=== PATIENT | male | born 1940 | race Caucasian/White ===

== ENCOUNTER → 2017-12-31 09:58 | Outpatient (CLI) | payer MEDICARE, BC, SELFPAY ==
--- NOTE | 2017-12-31 | DI.MRI.S_ITS ---
PROCEDURE: MR KNEE LT WO CON INDICATIONS: LEFT KNEE PAIN TECHNIQUE: Noncontrast sagittal PD fast spin echo and T2 fast spin echo with fat saturation, sagittal 3-D FLASH with fat saturation; coronal T1 spin echo and PD fast spin echo with fat saturation, and axial PD fast spin echo with fat saturation through the knee. COMPARISON: None. FINDINGS: Image quality: Excellent. Menisci: The medial and lateral menisci demonstrate degenerated morphology and internal signal which is most pronounced at the medial meniscus posterior horn where portions of the meniscus are absent and the remaining visible meniscal substance is heterogeneous and fluid ridge, indicating presence of both prior meniscal tear and degenerative erosions of the meniscal substance. The meniscal root ligaments appear intact. Cruciate ligaments: The anterior and posterior cruciate ligaments appear intact. Medial structures: The medial collateral ligament appears intact. The posterior oblique ligament, semimembranosus tendon insertions, oblique popliteal ligament, and meniscocapsular junction appear intact. Visualized portions of the pes anserinus tendons appear normal. No abnormal bursal fluid. Lateral structures: The lateral collateral ligament, long and short heads of the biceps femoris tendon appear intact. The popliteus tendon appears normal; the popliteofibular ligament appears intact. The posterosuperior and anteroinferior popliteomeniscal fascicles appear intact. The arcuate and fabellofibular ligaments appear intact, on either side of the lateral inferior geniculate artery. Iliotibial band appears normal. Anterior structures: The quadriceps and patellar tendons appear intact. Patellar alignment is normal. No femoral trochlear dysplasia or ventral trochlear prominence. No edema in the infrapatellar fat pad. Bones and cartilage: No bone marrow contusions or fractures but there is expected degenerative reactive edema within the medullary space of the medial femoral condyle and medial tibial plateau adjacent to the areas of maximal degenerative osteoarthritic change where a near [id number] articulation is present. The degree of degenerative osteoarthritic thinning of the cartilages less pronounced but still moderately severe at the lateral compartment. There is mild to moderate at the patellofemoral joint is seen at the apex of the throat clear groove and the lateral facet.. The cartilage of the medial and lateral femorotibial compartments, as well as the patellofemoral compartment, appears normal in thickness. Joint space: There is a moderately large degree of excess knee joint fluid. No Vogel's cyst. Normal appearing synovial plicae are incidentally noted. IMPRESSION: Severe osteoarthritis is present, most pronounced at the medial compartment where near [id number] articulation can be seen. This results in reactive edema involving the marrow space of both the medial femoral condyle and medial tibial plateau. Reactive edema also can be seen tracking into the medial collateral ligament and adjacent soft tissues and the medial patellar retinaculum. Meniscal degeneration is quite severe involving the posterior horn of the medial meniscus, and this extends into the mid body. Moderate degeneration involves the anterior horn of the medial meniscus and the posterior horn of the lateral meniscus. Moderately large knee joint effusion, no definite intra-articular loose body is found. Dictated by: Octaviano Rosen M.D. on 12/31/2017 at 16:25 Approved by: Octaviano Rosen M.D. on 12/31/2017 at 16:29
== END ==
PROVIDERS: Visit Provider Orthopaedic Surgery
DX: M25.562 Pain in left knee (principal); M17.12 Unilateral primary osteoarthritis, left knee; M23.307 Other meniscus derangements, unspecified meniscus, left knee; M25.462 Effusion, left knee
CPT/HCPCS: 73721

== ENCOUNTER 2018-04-01 10:31 | Inpatient (IN) | payer MEDICARE, BC, SELFPAY ==
[2018-03-16 10:42] VITALS: BMI 25.1
[2018-04-01] VITALS (11 sets, daily range): BP systolic 95–139; BP diastolic 52–87; PULSE 57–77; RESP 13–20; TEMP 36.1–36.8; O2SAT 93–98; BMI 24.6
--- NOTE | 2018-04-01 06:00 | DI.RAD.S_ITS ---
PROCEDURE: XR KNEE LT 1TO2V INDICATIONS: post op films TECHNIQUE: 2 view(s) of the knee acquired. COMPARISON: None. FINDINGS: Bones: Patient is status post knee joint arthroplasty. Hardware components are in expected positions. Visualized bony structures are intact. Soft tissues: Overlying postoperative changes are noted. IMPRESSION: Expected appearance of left knee arthroplasty. Dictated by: Fredis Fernandez M.D. on 04/01/2018 at 16:36 Approved by: Fredis Fernandez M.D. on 04/01/2018 at 16:36
[2018-04-01] MEDS: LACTATED RINGERS 1,000 ML 42 ML IV (11:21)
[2018-04-01] MEDS: PREGABALIN 75 MG CAPSULE PO (11:22)
[2018-04-01] MEDS: CELECOXIB 200 MG CAPSULE PO (11:22)
[2018-04-01] MEDS: ACETAMINOPHEN 325 MG TABLET 975 MG PO ×2 (11:23→21:12)
[2018-04-01] MEDS: VANCOMYCIN 1,000 MG/200 ML FROZ.PIGGY 200 MG IV (11:52)
--- NOTE | 2018-04-01 12:29 | PM.PREOP ---
Pre-operative Note Interval Note Pre-op Check: Yes History & Physical Reviewed by Physician and Yes Exam Performed Changes: No
--- NOTE | 2018-04-01 12:32 | P.OP_ITS ---
Operative Date/Time/Diagnoses Date of procedure: 04/01/18 Time of procedure: 12:59 Pre-op diagnosis: left knee OA Post-op diagnosis: same Procedure & Clinicians Procedure: left total knee arthroplasty Same procedure as scheduled: Yes Indications: The patient has had progressively worsening left knee pain with radiographic changes consistent with arthritis. Non-operative management has failed and the patient has requested total knee replacement. The risks, benefits and alternatives to surgery were discussed with the patient prior to proceeding. Risks discussed included, but were not limited to, failure to relieve pain, stiffness, infection, nerve damage, deep venous thrombosis, pulmonary embolism, stroke, coma, heart attack, permanent paralysis and , as well as the potential need for eventual revision of the prosthetic. Surgeon: Hafsa Cabello Community Outreach Director: Elyssa Fulton Anesthesia Type: General and Spinal Operative Notes Findings: severe left knee osteoarthritis Closure Type: primary Specimen(s): none sent Implants & Drains: aneesh BCS2 7 femur, 6 tibia, +11 poly, 41 oval patella Applied: catheter Estimated Blood Loss (mL): 250 Blood products transfused: none Tourniquet time (min): 91 Procedure in detail: The patient was seen in the pre-operative area, where the patient identified the left knee as the operative site and this was marked with my initials. The patient received pre-operative antibiotics, and was taken to the operating room and placed on the operative table in the supine position. After satisfactory anesthesia, a multimedia artist out was performed. The left leg was encircled with a tourniquet about the proximal thigh, and the leg was prepared from the toes to the tourniquet with ChloroPrep in the usual fashion and draped through sterile drapes. The leg was elevated and exsanguinated with Eschmark bandage and the tourniquet inflated to [250] mmHg pressure. The knee was approached through an approximately 18 cm incision centered over the patella and carried into the knee through a medial parapatellar arthrotomy. Portion of the medial and lateral meniscus was resected. Soft tissue was carefully mobilized around the patella the patella was measured with a caliper. Bone was resected from the patella and the patellar height was reconstituted with up an appropriate sized patellar component. A cover was then placed on the patella. A small amount of additional medial and lateral meniscus were resected. The visionare guide fit well to the distal femur. It looked like an appropriate distal femoral cut and the cut was made without difficulty. The rotation was assessed and the appropriate size femoral guide was placed on the distal femur and finishing cuts were made. There was no evidence of notching. The anterior, posterior and chamfer cuts were then made. The posterior osteophytes and soft tissues were then removed. The posterior capsule was injected with part of a mixture of 60 ml 0.25% Marcaine mixed with 20 ml Exparel for post operative pain control. The remainder of this mixture was injected into the capsule and subcutaneous tissues during cement curing. The tibia was prepared and the visionaire guide fit well to the distal tibia. The rotation was assessed. The patient was placed in extension residual medial and lateral meniscus as well as any residual bone was carefully resected. 2mm additional tibia was resected. Hemostasis was achieved especially posteriorly. Additional local was injected into the posterior capsule. The extension gap was assessed and additional releases for gap balancing were performed as necessary. It was checked with the gap community health outreach worker. The femoral component was trial was placed and the notch was finished. Trial tibial and femoral components were then placed and the knee placed through a range of motion. Range of motion was [ 0-130], with good stability throughout the range. The trials were then removed, and the tibia was finished. The bone was prepared with pulsatile lavage, and dried with a sponge. Cement was applied and the final prosthetics placed. Excess cement was removed during and after cement curing. A brief Betadine soak was performed. After confirming there was no extruded cement posteriorly, the final tibial insert was placed. The knee was copiously irrigated and the tourniquet deflated. Hemostasis was obtained with the bovie cautery. A drain was placed and brought out superolaterally. The capsule was closed with interrupted poly braided suture. The subcutaneous layer was closed with barbed sutures, and the skin with a running 3-0 V-Lock suture and Surgical glue. An Aquacel Ag dressing was applied and the patient was taken to recovery having tolerated the procedure well. Complications: none Condition: stable Disposition: PACU Plan for aftercare: The patient will be maintained on a standard total knee replacement protocol with weight bearing as tolerated. The patient will receive Aspirin and sequential compression devices for DVT prophylaxis. The patient will be discharged home when safe for the home environment. The patient has several medical problems including diabetes and hypertension and may require an inpatient stay to stabilize his head past medical problems we will try to actively mobilize him with physical therapy.
[2018-04-01] MEDS: CEFAZOLIN 2 GM/100 ML FROZ.PIGGY IV ×2 (13:00→21:11)
--- NOTE | 2018-04-01 13:59 | SUR.OPER ---
Supine on padded OR bed. Pillow under head, arms secured on padded armboards <90 degree abduction. Safety belt across torso. Non-operative leg secured with tape over blanket over lower leg. Operative leg secured in DeMayo/Gaston positioner. Foam padded brace at thigh of operative leg.
[2018-04-01] MEDS: BUPIVACAINE 0.25% W/ EPI VIAL 50 ML INJ (14:14)
[2018-04-01] MEDS: POVIDONE-IODINE 15 ML, SODIUM CHLORIDE 0.9% 250 ML TOP (14:15)
[2018-04-01] MEDS: BUPIVACAINE LIPOSOME 266 MG/20 ML VIAL INJ (14:15)
[2018-04-01] MEDS: ONDANSETRON 4 MG/2 ML INJ IV (16:11)
[2018-04-01] MEDS: OXYCODONE IR 5 MG TABLET PO ×2 (18:15→21:11)
[2018-04-01] MEDS: LACTATED RINGERS 1,000 ML 125 ML IV (18:16)
--- NOTE | 2018-04-01 18:24 | PC.NURSE ---
To room 207 from PACU awake and alert and conversive with family members. States beginning to feel discomfort to left knee; deep and dull. Instructed pt and family on prn nature of pain meds and need to communicate pain level and sensation with staff. Oxycodone administered with evening meal. Pt denies any nausea. BL calf scd's in place. Continuous pulse oximetry 99%.
--- NOTE | 2018-04-01 18:31 | PC.NURSE ---
Hemovac unclamped as per orders.
[2018-04-01] MEDS: IBUPROFEN 600 MG TABLET PO (19:25)
[2018-04-01] MEDS: ASPIRIN EC 81 MG TABLET PO (21:13)
[2018-04-01] MEDS: DOCUSATE 100 MG CAPSULE PO (21:13)
[2018-04-01] MEDS: MELATONIN 3 MG TABLET 6 MG PO (21:14)
[2018-04-01] MEDS: SIMVASTATIN 20 MG TABLET PO (21:14)
--- NOTE | 2018-04-01 22:39 | PC.NURSE ---
Incontinent of urine in bed. Assisted by FIELD TECHNICAL ASSISTANT to bathroom to toilet and for linen change. Returned to bed. Refuses scd's stating makes it difficult to sleep. Medicated with oxycodone for pain 10/06 left knee. Hemovac drain intact. Encouraged to call for needs.
[2018-04-02] MEDS: OXYCODONE IR 5 MG TABLET PO (00:40)
[2018-04-02 00:45] VITALS: BP 105/55; PULSE 64; RESP 18; TEMP 36.5; O2SAT 95
[2018-04-02] MEDS: LACTATED RINGERS 1,000 ML 125 ML IV (02:32)
[2018-04-02 05:09] LABS: Hematocrit 36.3 % (41-53); Hemoglobin 12.4 g/dL (13.5-17.5)
[2018-04-02 05:16] VITALS: BP 114/63; PULSE 62; RESP 18; TEMP 36.7; O2SAT 92
[2018-04-02] MEDS: CEFAZOLIN 2 GM/100 ML FROZ.PIGGY IV (05:39)
[2018-04-02 08:10] VITALS: BP 114/64; PULSE 74; RESP 18; TEMP 36.8; O2SAT 95
[2018-04-02] MEDS: IBUPROFEN 600 MG TABLET PO (09:04)
[2018-04-02] MEDS: ACETAMINOPHEN 325 MG TABLET 975 MG PO (09:06)
[2018-04-02] MEDS: LISINOPRIL 5 MG TABLET PO (09:06)
[2018-04-02] MEDS: MELOXICAM 7.5 MG TABLET 15 MG PO (09:06)
[2018-04-02] MEDS: GABAPENTIN 300 MG CAPSULE PO (09:07)
[2018-04-02] MEDS: ASPIRIN EC 81 MG TABLET PO (09:07)
--- NOTE | 2018-04-02 10:11 | PM.OP.1 ---
Operative Date/Time/Diagnoses Date of procedure: 04/01/18 Time of procedure: 13:28 Pre-op diagnosis: left knee oa
--- NOTE | 2018-04-02 10:20 | PT.IIE ---
Current Diagnoses Unilateral primary osteoarthritis, left knee (04/01/18) Effusion, left knee (04/01/18) Surgery Performed Operation Date: 04/01/18 12:00 Actual Procedures p Total Knee Arthroplasty(Left) - Hafsa Cabello MD Surgical History (Last Updated 03/16/18 @ 11:11 by Rosangela Acevedo, RN) History of bunionectomy (Acute ~1993) History of cholecystectomy (Acute ~1976) History of inguinal hernia repair, bilateral (Acute) History of lumbar laminectomy (Acute ~2012) Medical History (Last Updated 03/16/18 @ 11:36 by Rosangela Acevedo, RN) Bruises easily (Acute) Cataract (lens) fragments in eye following cataract surgery, bilateral (Acute) Constipation (Acute) Depression (Acute) Diabetes (Acute) Effusion, left knee (Acute) Glaucoma (Acute) History of headache (Acute) Hyperlipidemia (Acute) Hypertension (Acute) Murmur (Acute) Osteoarthritis (Acute) Paralysis of diaphragm (Acute) Physical Therapy Inpatient Evaluation/Re-Eval M1 PT/OT-IP Prior Functional Status Start: 04/02/18 12:36 Freq: NEEDED Status: Active Protocol: Document 04/02/18 10:20 DLM (Rec: 04/02/18 12:56 [facility] [id number]) Medical Review Prior Functional Status Medical History Reviewed Yes Diet/Fluid Consistency Regular Communication WNL Mobility and Gait Independent without device, community distances Activities of Daily Living and IADL's Independent Social History Household Members none Living Arrangements House Number of Floors (Floors) Two Floors Number of Stairs To Enter/Railing? 2 with one rail Home Equipment Front Wheel Walker Straight Cane Crutches Employment Status Retired Additional Social History Comment He can stay in guest bedroom on main level, his Daughter plans to stay with him to help at discharge M2 PT-IP Current Condition Start: 04/02/18 12:36 Freq: NEEDED Status: Active Protocol: Document 04/02/18 10:20 DLM (Rec: 04/02/18 12:56 DL [id number]) Physical Therapy Current Condition Current Condition Evaluation Date 04/02/18 Treatment Diagnosis left TKA Onset Date 04/01/18 Weight Bearing Status Weight Bearing Status Weight Bear as Tolerated M3 PT-IP Subjective Start: 04/02/18 12:36 Freq: NEEDED Status: Active Protocol: Document 04/02/18 10:20 DLM (Rec: 04/02/18 12:56 [facility] [id number]) Subjective Physical Therapy Visit Type Type Initial Evaluation Visit Start Time 09:45 Visit Stop Time 10:20 Total Visit Minutes 35 Number of TALENT CONSULTANT Visits 0 Physical Therapy Visit Comments Patient Comments He went to therapy before surgery so he knows his exercises Patient Goals discharge home Therapy Pain Assessment Pain When Pain Assessed At Rest Pain Present Pain Present Pain Reported Location Left Knee Intensity 4 Scale Used Numeric (1 - 10) Description Aching Pain Behaviors Guarding Pain Management Techniques Apply Cold Re-positioning Timing of Activity with Medications M4 PT-IP Mobility and Gait Start: 04/02/18 12:36 Freq: NEEDED Status: Active Protocol: Document 04/02/18 10:20 DLM (Rec: 04/02/18 12:56 [facility] [id number]) PT-Transfer Assessment Sit to and From Stand Sit to and from Stand Standby Assistance Use of Upper Extremities Equipment Transfer Assistive Device Gait Belt Front Wheeled Walker Transfers Transfer Destination Chair Transfer Technique Stand Step Pivot Transfer Ability Level of Assist Standby Assistance Use of Upper Extremities Comments Mobility Comments Pt sitting up in recliner, got up with nursing Gait Assessment Gait Gait Assistance Required: Standby Assistance Distance (Feet) 25 Able to Maintain Weight Bearing Status Yes During Gait Assistive Devices Assistive Device Gait Belt Front Wheeled Walker Gait Deviations General Gait Pattern Antalgic Factors Limiting Gait Function Factors Limiting Gait Function Decreased Activity Tolerance Decreased Strength Limited Range of Motion Pain PT-Balance Assessment Sitting Balance and Reactions Static Sitting Balance Ability Normal Dynamic Sitting Balance Ability Normal Standing Balance and Reactions Static Standing Balance Ability Good Dynamic Standing Balance Ability Good Device Used FWW M5 PT-IP Objective Assessments Start: 04/02/18 12:36 Freq: NEEDED Status: Active Protocol: Document 04/02/18 10:20 DLM (Rec: 04/02/18 12:56 [facility] [id number]) Orientation Orientation/Cognition Level of Alertness Alert Orientation Name Age Birthday Month Date Year Day of Week Place Situation Language Function Ability No Deficits Noted Safety Awareness Understands Safety Issues Memory Description No Deficits Noted Gross Range of Motion Upper Extremity ROM Assessment Within Functional Limits Lower Extremity ROM Assessment Left Impaired Impairments knee flexion to 90 seated lacking 20 degrees extension in knee Strength Upper Extremity Strength Assessment Within Functional Limits Lower Extremity Strength Assessment Left Impaired Hip needs assist for SLR Knee knee ext 3-/5, flexion 3+/5 Ankle moving ankle actively Coordination Assessment Gross Coordination Gross Coordination WNL Sensation Assessment Sensation Gross Sensation WNL Muscle Tone Muscle Tone WNL Yes M6 PT-IP Treatment Start: 04/02/18 12:36 Freq: NEEDED Status: Active Protocol: Document 04/02/18 10:20 DLM (Rec: 04/02/18 12:56 DLM [id number]) Physical Therapy Treatment Exercises Exercises Ankle Pumps Quad Sets Heel Slides Straight Leg Raises Short Arc Quads Passive Knee Extension Hang Seated Knee Flexion/Extension Education Education Provided Weight Bearing Status Post-Op Packet Safety M7 PT-IP Assessment and Plan Start: 04/02/18 12:36 Freq: NEEDED Status: Active Protocol: Document 04/02/18 10:20 DLM (Rec: 04/02/18 12:56 DLM [id number]) PT Summary Assessment and Plan Potential Rehabilitation Potential Excellent Status of Condition at Evaluation Evolving Summary Impairments Pain ROM Strength Balance Bed Mobility Transfers Gait Activity Tolerance Assessment Summary He is tolerating activity well post-op day one. He is up to chair and tolerated ambulating in his room. Tolerated his exercises well. He is eager to discharge home. Will plan to do treatment session in afternoon to increase his distance of gait and stair training before possible discharge today. Goals Bed Mobility Goal Independent Transfer Goal Independent Front Wheeled Walker Gait Goal Independent Front Wheel Walker Gait Distance 100 feet Other Goals up and down 2 steps with rail and cane with SBA Days to Meet Goals 2 Frequency of Treatment Frequency Of Treatment Twice a Day Treatment Plan Physical Therapy Treatment Plan Bed Mobility Training Transfer Training Gait Training Therapeutic Exercise Post Op Education Discharge Planning Hot or Cold Pack Recommendations To Nursing Amount of Assist Needed 1 Person Assist Discharge Recommendations PT Discharge Recommendations Home with Assistance Outpatient PT
--- NOTE | 2018-04-02 11:13 | PM.DS.1 ---
History of Present Illness Date Patient Seen: 04/02/18 Time Patient Seen: 11:13 Chief complaint: [id number] LEFT TOTAL KNEE ARTHROPLASTY Narrative: The patient has had progressively worsening left knee pain with radiographic changes consistent with arthritis. Non-operative management has failed and the patient has requested total knee replacement. The risks, benefits and alternatives to surgery were discussed with the patient prior to proceeding. Risks discussed included, but were not limited to, failure to relieve pain, stiffness, infection, nerve damage, deep venous thrombosis, pulmonary embolism, stroke, coma, heart attack, permanent paralysis and , as well as the potential need for eventual revision of the prosthetic. Discharge Providers Date of admission: 04/01/18 10:31 Primary care physician: Raoul Lange MD Consults: 04/01/18 17:10 Consult to Discharge Planning Routine Comment: Consult to Physical Therapy Evaluate & Treat Comment: Physician Instructions: postop TKA protocol Consult to Respiratory Therapy Evaluate & Treat Comment: Physician Instructions: Evaluate and treat 04/01/18 17:11 Consult to Respiratory Therapy Evaluate & Treat Comment: patient has right hemidiaphram; s/p left TKA Physician Instructions: Evaluate and treat 04/01/18 17:16 Consult to Pastoral Services Routine Comment: if available Discharge provider: Faina Hicks PA-C Discharge Date: 04/02/18 Summary Discharge Diagnosis: Status post left total knee arthroplasty Hypertension Hospital Course: Patient admitted for left total knee arthroplasty with Dr. Cabello, and he consented to procedure. Hospital course unremarkable. On postop day 1. Patient was feeling well and wanted to go home. He had been mobilizing with physical therapy. He has outpatient physical therapy scheduled. He has his home medications for pain already. He is eating and voiding without difficulty or assistance. Calves were soft, compressible, nontender bilaterally. Exam Vital Signs (past 8 hours): - 04/02/18 05:16 04/02/18 08:10 Temperature 98.1 F 98.2 F Pulse Rate 62 74 Respiratory Rate 18 18 Blood Pressure 114/63 114/64 Pulse Oximetry 92 95 Oxygen Delivery Method Room Air Oxygen Flow Rate 0 Narrative Exam Narrative: Patient is sitting at bedside chair no acute distress. Is alert and oriented x3. Dressing is CDI. Raúl wrap in place. Calves are soft, compressible, nontender bilaterally. Sensation intact light touch throughout bilateral lower extremities. Dorsalis pedis pulses symmetrical. He is able to actively dorsiflex and plantar flex. Pain is well controlled. ASA for DVT prophylaxis. Objective Labs Result Diagrams: 04/02/18 04:30 Labs: Laboratory Results - last 24 hr 04/02/18 04:30 Hgb 12.4 L Hct 36.3 L Discharge Plan Discharge Plan Patient Disposition: Home Discharge comment: DC home today this afternoon Discharge Med Rec/Prescriptions Prescriptions: New acetaminophen 325 mg Tablet 975 mg PO TID Qty: 10 RF: 0 Continue multivitamin Tablet 1 tab PO DAILY RF: 0 meloxicam 15 mg Tablet 15 mg PO DAILY RF: 0 melatonin 3 mg Tablet 6 mg PO BEDTIME RF: 0 glipizide 2.5 mg Tablet Extended Release 24hr 2.5 mg PO DAILY RF: 0 simvastatin 20 mg Tablet 20 mg PO QPM RF: 0 gabapentin 300 mg Capsule 300 mg PO DAILY RF: 0 lisinopril 5 mg Tablet 5 mg PO DAILY RF: 0 cinnamon bark [Cinnamon] 500 mg Capsule 2,000 mg PO DAILY RF: 0 latanoprost 0.005 % Drops 1 drp EYE-BOTH DAILY RF: 0 Changed aspirin 81 mg Tablet,Delayed Release (Dr/Ec) 81 mg PO BID Qty: 0 RF: 0 Follow up/Referrals: Hafsa Cabello MD [Physician] - (Please follow up in 5-7 days) Provider Discharge Instructions Diet: Diet as Tolerated Activity: Left total knee precautions Cold/Heat Therapy: As needed Skin/Wound/Dressing Care Dressing: The Aquacel dressing in place for 10-14 days Visit Report/Discharge Packet Instructions: DI for Knee Replacement Discharge Data Primary Care Provider: Raoul Lange Attending Provider: Hafsa Cabello Admit Date/Time: 04/01/18 10:31 Quality VTE Deep Vein Thrombosis/Pulmonary Embolism Present on Admission: No
[2018-04-02 11:40] VITALS: PULSE 63; RESP 20; TEMP 36.8; O2SAT 94
--- NOTE | 2018-04-02 14:28 | PT.IPTN ---
Current Diagnoses Unilateral primary osteoarthritis, left knee (04/01/18) Effusion, left knee (04/01/18) Surgery Performed Operation Date: 04/01/18 12:00 Actual Procedures p Total Knee Arthroplasty(Left) - Hafsa Cabello MD Physical Therapy Treatment Note M2 PT-IP Current Condition Start: 04/02/18 12:36 Freq: NEEDED Status: Discharge Protocol: Document 04/02/18 10:20 DLM (Rec: 04/02/18 12:56 DLM [id number]) Physical Therapy Current Condition Current Condition Evaluation Date 04/02/18 Treatment Diagnosis left TKA Onset Date 04/01/18 Weight Bearing Status Weight Bearing Status Weight Bear as Tolerated M3 PT-IP Subjective Start: 04/02/18 12:36 Freq: NEEDED Status: Discharge Protocol: Document 04/02/18 14:28 DLM (Rec: 04/02/18 15:57 DLM [id number]) Subjective Physical Therapy Visit Type Type Treatment Note Visit Start Time 13:45 Visit Stop Time 14:28 Total Visit Minutes 43 Notes His Daughter is present for therapy session Number of CONTACT ASSEMBLER Visits 0 Physical Therapy Visit Comments Patient Comments He feels he is ready to go home today. Therapy Pain Assessment Pain When Pain Assessed At Rest Pain Present Pain Present Pain Reported Location Left Knee Intensity 4 Scale Used Numeric (1 - 10) Description Aching Pain Management Techniques Re-positioning M4 PT-IP Mobility and Gait Start: 04/02/18 12:36 Freq: NEEDED Status: Discharge Protocol: Document 04/02/18 14:28 DLM (Rec: 04/02/18 15:57 DLM [id number]) PT-Bed Mobility Assessment Supine to Sit Supine to Sit Independent Sit to Supine Sit to Supine Independent Scooting Scooting to Edge of Bed Independent PT-Transfer Assessment Sit to and From Stand Sit to and from Stand Independent Use of Upper Extremities Equipment Transfer Assistive Device Gait Belt Front Wheeled Walker Transfers Transfer Destination Chair Transfer Technique Stand Step Pivot Transfer Ability Level of Assist Independent Use of Upper Extremities Gait Assessment Gait Gait Assistance Required: Contact Guard Assist Distance (Feet) 80 Able to Maintain Weight Bearing Status Yes During Gait Assistive Devices Assistive Device Gait Belt Front Wheeled Walker Gait Deviations General Gait Pattern Antalgic Decreased Stride Length Factors Limiting Gait Function Factors Limiting Gait Function Decreased Activity Tolerance Decreased Strength Limited Range of Motion Pain Comments Gait Comments keeping left knee flexed in stance with poor quad control, good use of UE's on FWW for support Stair Climbing Assessment Evaluation Level of Assist On Stairs Contact Guard Assistance Devices Stair Climbing Assistive Devices Left Railing Right Railing Technique/Endurance Stair Climbing Direction Ascend and Descend Stair Climbing Technique Step to Step Number of Steps Climbed 3 Query Text: Stair Climbing Set # Repetitions (reps) 1 Comments Stair Climbing Comments he will need a device on his steps (either cane or crutch) to get up his steps at home with one rail M5 PT-IP Objective Assessments Start: 04/02/18 12:36 Freq: NEEDED Status: Discharge Protocol: Document 04/02/18 10:20 DLM (Rec: 04/02/18 12:56 DLM [id number]) Orientation Orientation/Cognition Level of Alertness Alert Orientation Name Age Birthday Month Date Year Day of Week Place Situation Language Function Ability No Deficits Noted Safety Awareness Understands Safety Issues Memory Description No Deficits Noted Gross Range of Motion Upper Extremity ROM Assessment Within Functional Limits Lower Extremity ROM Assessment Left Impaired Impairments knee flexion to 90 seated lacking 20 degrees extension in knee Strength Upper Extremity Strength Assessment Within Functional Limits Lower Extremity Strength Assessment Left Impaired Hip needs assist for SLR Knee knee ext 3-/5, flexion 3+/5 Ankle moving ankle actively Coordination Assessment Gross Coordination Gross Coordination WNL Sensation Assessment Sensation Gross Sensation WNL Muscle Tone Muscle Tone WNL Yes M6 PT-IP Treatment Start: 04/02/18 12:36 Freq: NEEDED Status: Discharge Protocol: Document 04/02/18 14:28 DLM (Rec: 04/02/18 15:57 DL [id number]) Physical Therapy Treatment Education Education Provided Weight Bearing Status Post-Op Packet Safety Other Treatments Other Treatment Performed reviewed written HEP with pt and his Daughter M7 PT-IP Assessment and Plan Start: 04/02/18 12:36 Freq: NEEDED Status: Discharge Protocol: Document 04/02/18 14:28 DLM (Rec: 04/02/18 15:57 DLM [id number]) PT Summary Assessment and Plan Summary Progress Towards Goals Progressing Toward Goals Safe For Discharge Assessment Summary He continues to progress this visit. His Daughter is prepared to assist him at home . He keeps his knee flexed during gait with decreased quad control during stance phase of gait. Training performed for pt to improve quad control and knee extension in stance but pt c/o pain. He appears safe to discharge home with family assist. Answered the questions from pt and his Daughter about home safety issues. Frequency of Treatment Frequency Of Treatment Discharge Recommendations To Nursing Amount of Assist Needed 1 Person Assist Discharge Recommendations PT Discharge Recommendations Home with Assistance Outpatient PT
--- NOTE | 2018-04-02 14:52 | PC.NURSE ---
Discharge Pt states pain controlled with PRN ibuprofen. Pt curious about taking aleve instead of ibuprofen at home. Called HARSHA Delcid and states ok for pt to take aleve at home. d/c instructions provided to pt and daughter. Pt has f/u apt already scheduled with Dr Cabello's office. Notified to contact MD if any other questions or concerns arrise. Dressing is CDI. Raúl wrap in place. Pt accidentally removed his hemovac this AM when he put on his shorts. /HARSHA aware, pt to apply raúl wrap at home for comfort if needed. Pt states he took all belongings with him. left in w/c with RN escort to car.
--- NOTE | 2018-04-02 14:58 | CM.IDA ---
DC Home today, no barriers. DESTINEY Macias Discharge Planning/Care Management CM Discharge Assessment Start: 04/02/18 14:52 Freq: Status: Active Protocol: Document 04/02/18 14:52 JOYCE (Rec: 04/02/18 14:58 JOYCE [id number]) Discharge Planning Assessment Assigned Professor Of Genetics DESTINEY Delgado DPOA/Assigned Designee Name Sanam Prince dtr Contact Information [phone] Advance Directives? Yes Advance Directives on File No: On file at [facility] History Provided By Patient Family Member Medical Record Prior Living Arrangements House Household Members none Comment Spouse one year ago. Type of transporation used prior to Drives own vehicle admit Independent with ADL's Yes: w/o AD Is patient alert and oriented? Yes Barriers to Discharge No Discharge Plan Home Transportation Arrangement Family Referrals Initiated None needed Additional Comment Met w/pt, dtr Sanam and bala dtjonas, explained role. Pt lost his one year ago and dtr explains pt is very indp mentally and functionally and yet very depressed since her passing. Sanam plans to spend the next few night with her Dad and her brother, pt's son, will be spending the night after that for a few nights. PT has assessed and cleared pt for return home w/his family. Pt and family agree no barriers to safe DC home w/ family later this afternoon. Whiteboard Updated in Patient Room with Yes name and ext. # of Professor Of Genetics Please Provide Date Initial DC 04/02/18 Assessment Was Performed
== END 2018-04-02 14:45 | disposition home or self-care (01) | DRG 470 ==
PROVIDERS: Admitting Provider Orthopaedic Surgery; PCP Family Medicine; Visit Provider Orthopaedic Surgery
PROC: 0SRD0JZ Replacement of Left Knee Joint with Synthetic Substitute, Open Approach (ICD-10-PCS; CPT 27447; principal; 2018-04-01 12:00)
DX: M17.12 Unilateral primary osteoarthritis, left knee (principal); E11.9 Type 2 diabetes mellitus without complications; Z79.84 Long term (current) use of oral hypoglycemic drugs; I10 Essential (primary) hypertension; E78.5 Hyperlipidemia, unspecified; Z87.891 Personal history of nicotine dependence
CPT/HCPCS: 36415; 73560; 82962; 85014; 85018; 97110; 97116; 97162; C1776; C9290; J0690; J2405; J2704; J3370

== ENCOUNTER → 2022-02-20 12:22 | Outpatient (CLI) | payer MEDICARE, BC, SELFPAY ==
[2018-04-01 13:34] VITALS: BMI 24.6
--- NOTE | 2022-02-20 | DI.MRI.S_ITS ---
PROCEDURE: MR LUMBAR SPINE WO CON INDICATIONS: Low back pain, unspecified TECHNIQUE: Noncontrast sagittal T1 spin echo and T2 fast echo, sagittal STIR, axial T1 and T2 fast spin echo through the lumbar spine. Axial and oblique coronal T1 spin echo and STIR through the sacrum. In cases with scoliosis, additional coronal T2 fast spin echo may be performed. COMPARISON: None. FINDINGS: Image quality: Excellent. Alignment and Curvature: There is normal bony alignment. Bone Marrow: Chronic degenerative endplate changes noted at L2-3. Modic type 1 edematous endplate changes noted at L 3 4 L4-5. Spinal Cord: Conus medullaris terminates at the L1 level. Visualized cord demonstrates normal signal and size. Paraspinous Soft Tissues: There is fatty replacement of the posterior paraspinal musculature T12-L1: Normal appearance. L1-L2: Normal appearance. L2-L3: Disc space narrowing and circumferential disc bulge present with mild central stenosis. Moderate bilateral foraminal stenosis. L3-L4: Disc space narrowing with circumferential disc bulge and hypertrophic facet joints results in moderate central stenosis. Severe left and moderate right foraminal stenosis L4-L5: Disc space narrowing with circumferential disc bulge and hypertrophic facet joints results in severe central stenosis. Severe left and moderate right foraminal stenosis L5-S1: Disc space narrowing with posterior disc bulge present without central stenosis. Severe right and left foraminal stenosis present. IMPRESSION: Multilevel degenerative disc disease and arthropathy results in varying degrees of central and foraminal stenosis including severe central stenosis L4-5 and severe foraminal stenosis L3-4, L4-5 and L5-S1 Approved by: Boby Park M.D. on 02/20/2022 at 14:51
== END ==
PROVIDERS: PCP Family Medicine; Referring Provider Orthopaedic Surgery Orthopaedic Surgery of the Spine; Visit Provider Orthopaedic Surgery Orthopaedic Surgery of the Spine
DX: M51.36 Other intervertebral disc degeneration, lumbar region (principal); M51.37 Other intervertebral disc degeneration, lumbosacral region; M47.816 Spondylosis without myelopathy or radiculopathy, lumbar region; M48.061 Spinal stenosis, lumbar region without neurogenic claudication; M48.07 Spinal stenosis, lumbosacral region; M54.50 Low back pain, unspecified
CPT/HCPCS: 72148

== ENCOUNTER 2022-11-10 10:02 | Inpatient (IN) | payer MEDICARE, BC, SELFPAY ==
[2018-04-01 13:34] VITALS: BMI 24.6
[2022-11-03 09:50] VITALS: BMI 26.3
[2022-11-10] VITALS (12 sets, daily range): BP systolic 101–165; BP diastolic 56–85; PULSE 59–82; RESP 12–20; TEMP 36.1–37.1; O2SAT 91–98; BMI 26.3
[2022-11-10] MEDS: GABAPENTIN 300 MG CAPSULE PO ×2 (10:56→20:05)
[2022-11-10] MEDS: LACTATED RINGERS 1,000 ML 42 ML IV ×2 (10:56→14:50)
[2022-11-10] MEDS: ACETAMINOPHEN 325 MG TABLET 975 MG PO (10:56)
[2022-11-10 10:57] LABS: COVID19 -Nasal RAPID Negative (Negative)
--- NOTE | 2022-11-10 13:42 | SUR.OPER ---
Prone on spine table, head in foam head support, padded chest and pelvic supports, gel pad at knees, lower legs supported by pillows; nipples, genitalia and toes free of pressure, arms secured on foam padded arm boards at <90 degrees abduction. Tape over blanket at thigh secured to table.
--- NOTE | 2022-11-10 14:08 | SUR.OPER ---
PT'S PARTIAL REMOVED PRE-OP & PLACED IN LABELED DENTURE CUP W/WATER. TAKEN TO PACU W/PT. POST-OP. Misty, Yonathan.
--- NOTE | 2022-11-10 16:43 | PM.OP.1 ---
Operative Date/Time/Diagnoses Date of procedure: 11/10/22 Time of procedure: 13:00 Pre-op diagnosis: 1. L4-5, L5-S1 spinal stenosis 2. Lumbar scoliosis 3. Lumbar spondylosis with radiculopathy Post-op diagnosis: same Procedure & Clinicians Procedure: 1. L4-5, L5-S1 Postero-lateral and posterior interbody fusion 2. L4-5, L5-S1 interbody cage placement. 3. L4-5, L5-S1 decompressive laminectomy with bilateral facetecomies 4. L4-5, L5-S1 Posterior segmental instrumentation 5. Hankinson of bone marrow from iliac crest 6. Utilization of microsurgical technique and operating microscope 7. Utiliztaion of robotic asssited navigation Same procedure as scheduled: Yes Indications: Patient has been having chronic back pain and worsening lumbar radiculopathy. Patient failed multiple conservative management with worsening pain weakness and numbness in his lower extremity. Patient has been having difficulty performing activity of daily living. After discussing risks benefits of treatment options, patient elected proceed with surgery. Surgeon: Reanna Kemp Insurance Account Executive: Santiago Humphrey Click Yes if Unassisted: No Anesthesia Type: General Operative Notes Closure Type: primary Specimen(s): none sent Prosthetic devices, grafts, tissues, transplants, or devices: Globus CREO MIS screws, Rise cages Applied: catheter Estimated Blood Loss (mL): 100 Blood products transfused: none Procedure in detail: Patient was seen in the preoperative area. Risks and benefits of the surgery was discussed with the patient. Informed consent was obtained from the patient and placed in the chart. Surgical site was marked. Patient was taken to the operative room. General anesthesia was administered. Prophylactic antibiotic was given to the patient less than 30 min before the incision was made. Patient was placed into a prone position on the Ronald table. Patient's back was then prepped and draped in the sterile fashion. Time-out was performed at this time. After patient was prepped and draped, patient's PSIS was palpated and marked bilaterally. Small 1 cm incision was made over the PSIS for placement of the reference probes. Two trocar was placed into the PSIS 1 on each side. The reference probe was attached to the trocar of the reference apparatus. At this time the C-arm imaging was used to confirm AP and lateral of L4-L5, L5-S1 vertebrae and merged the C-arm imaging using the [employer] robotic navigation system with the CT of the lumbar spine. After successful merging was completed and confirmed, skin marker was used to tj out the skin incision using the [employer] robotic arm. Bilateral incision was made at this time. Pre templated trajectory was used and guided using the [employer] robotic navigation system for bilateral L4, L5, S1 pedicle screw placement. This was done by using the robotic arm to guide the high-speed bur to make a cortical entry point. Next a drill was placed also using the robotic arm and guided using the navigation system drilling partially through bilateral L4, L5 and S1 pedicles. Next L4, L5, S1 pedicle screws it was pre templated and measured was placed onto the power steam train driver and inserted into the pedicles bilaterally. After all 6 screws were placed C-arm imaging was taken of both AP and lateral to confirm the placement. Excellent placement of the screws were confirmed and a matched precisely with the pre planned screw placement using the navigation system. MARs retractor was inserted using [employer] guidence. Globus MARS retractors was placed inside the incision and docked onto the L4 and L5 lamina. Using microsurgical technique and operating microscope, a L4, L5 laminectomy and L4-5, L5-S1 facetectomy was performed using a Kerrison rongeur. Patient was found have severe lateral recess and neural foramen stenosis which was fully decompressed after the laminectomy facetectomy. More than 75% of the facets were removed during the process of decompression rendering L4-5, L5-S1 level grossly unstable and required a fusion procedure at the same time. The disc space at L4-5, L5-S1 was identified, and a total diskectomy was performed at L4-5, L5-S1 level. The endplates were decorticated using a rasp and shaver. The total diskectomy and decortication was performed at L4-5, L5-S1 level in order to to accomplish a L4-5, L5-S1 fusion. The local bone from the laminectomy and facetectomy was saved for local bone grafting. After the total diskectomy and decortication was completed, Trifecta bone graft material was combined with local bone that was harvested earlier. At this time, a separate skin is incision was made over the iliac crest. A Jamshidi needle was inserted into the iliac crest through a separate skin incision. 5 cc of bone marrow aspiration was obtained through the separate skin incision using a Jamshidi needle from the iliac crest. The bone marrow aspiration was combined with local bone and the Trifecta bone grafting material. The bone grafting material was placed into the L4-5, L5-S1 interbody space along with a expandable cage. The cage was expanded to its maximum height using the torque limiting screwdriver. The disc preparation as well as the cage insertion were also performed under navigation guidance. After the cage was placed, AP and lateral C-arm imaging was taken to confirm placement of the cage and excellent position was confirmed. Globus MARS retractor was inserted and docked onto the L4-5, L5-S1 posterolateral gutter on the right side. Using the power drill, posterior-lateral decortication was performed at L4-5, L5-S1 level until bleeding cortical bone was identified. The remaining bone grafting material was placed into the L4-5, L5-S1 posterior lateral gutter he order to accomplish posterolateral fusion at the L4-5, L5-S1 level. At this time the tulips were attached to the L4, L5, S1 pedicle screw shanks. After measuring the length of the rods, they were inserted into the tulips of the pedicle screws and locked in place using locking caps and torque limiting screwdriver bilaterally. Total 6 caps and 2 titanium rods was used in order to complete the posterior instrumentation construct. After all the hardware was placed, and confirmed with AP and lateral C-arm imaging, the wound was then irrigated with sterile normal saline and packed with Ray-Cheo gauze for 3 min to accomplish hemostasis. After the gauze was removed the deep fascia was closed with #1 Vicryl suture. The subcutaneous layer was closed with 2-0 Vicryl. The skin was closed with skin clarita. Patient tolerated the procedure well. There were no complications. Neuro monitoring system was used to monitor patient's neurologic status throughout entire procedure. There was no disturbance of the neural monitoring signals throughout the case. The Operation could not have been safely performed without compromising the technical result or length of the procedure, without the assistance of a skilled culture media laboratory assistant. The culture media laboratory assistant was medically necessary for proper positioning, retraction and manipulation of instruments, proper exposure, surgical preparation, and manipulation of tissue. Complications: none Post-operative Condition: stable Disposition: PACU Plan for aftercare: Admit to inpatient hospital
--- NOTE | 2022-11-10 17:00 | DI.RAD.S_ITS ---
PROCEDURE: XR LUMBAR SPINE 2-3V INDICATIONS: L4-5, L5-S1 TLIF TECHNIQUE: 2 intraoperative fluoroscopic views of the lumbar spine were acquired. COMPARISON: None. FINDINGS: Intraoperative fluoroscopic images shows posterior fusion at L4-5 and L5-S1 levels with surgical hardware and intervertebral spacers in place. IMPRESSION: Fluoro guidance was provided intraoperatively for posterior fusion at L4-5 and L5-S1 levels. Dictated by: Melecio Martinez M.D. on 11/11/2022 at 8:26 Approved by: Melecio Martinez M.D. on 11/11/2022 at 8:33
[2022-11-10] MEDS: HYDROMORPHONE 2 MG INJ IV (17:03)
[2022-11-10] MEDS: LACTATED RINGERS 1,000 ML 125 ML IV ×2 (18:39→18:40)
--- NOTE | 2022-11-10 18:55 | PC.NURSE ---
Assess- Patient is visiting with his family and having a bite to eat. His dressing to lower back is cdi. Patient sitting up with head of bed and has no nausea present. IVF infusing with LR at 125cc/hr. He is tolerating this well. Denies pain at this time and cms wnl.
[2022-11-10] MEDS: polyethylene glycoL 3350 17 GM POWD.PACK PO (20:02)
[2022-11-10] MEDS: hydrOXYzine pamoate 25 MG CAPSULE PO (20:02)
[2022-11-10] MEDS: MAGNESIUM HYDROXIDE 30 ML UDC PO (20:02)
[2022-11-10] MEDS: OXYCODONE IR 10 MG TABLET PO (20:02)
[2022-11-10] MEDS: CEFAZOLIN 2 GM/100 ML PREMIX 100 ML IV (20:02)
[2022-11-10] MEDS: SENNOSIDES 8.6 MG TABLET 17.2 MG PO (20:05)
[2022-11-10] MEDS: ATORVASTATIN 20 MG TABLET 10 MG PO (20:05)
[2022-11-10] MEDS: MELATONIN 3 MG TABLET 6 MG PO (20:05)
[2022-11-10] MEDS: DOCUSATE 100 MG CAPSULE PO (20:06)
[2022-11-11 00:35] VITALS: BP 121/57; PULSE 64; RESP 18; TEMP 36.3; O2SAT 94
[2022-11-11] MEDS: CEFAZOLIN 2 GM/100 ML PREMIX 100 ML IV (05:18)
[2022-11-11 06:01] VITALS: BP 115/74; PULSE 63; RESP 20; TEMP 36.4; O2SAT 94
[2022-11-11 07:18] LABS: Hematocrit 39.4 % (41-53); Hemoglobin 13.4 g/dL (13.5-17.5)
--- NOTE | 2022-11-11 08:33 | PM.DS.1 ---
History of Present Illness History of Present Illness Date Patient Seen: 11/11/22 Time Patient Seen: 08:33 Chief complaint: Hungry Narrative: 81-year-old male states he is hungry. Pain is 6/10. No fever or chills. No nausea vomiting. Discharge Providers Provider Date of admission: 11/10/22 10:02 Discharge Date: 11/11/22 Primary care physician: Julio C Loomis Consults: 11/10/22 18:00 Consult to Occupational Therapy Evaluate & Treat Comment: Physician Instructions: Evaluate and treat Consult to Physical Therapy Evaluate & Treat Comment: Physician Instructions: Evaluate and Treat Discharge provider: Santiago Humphrey PA-C Summary Hospital Course Discharge Diagnosis: 1. L4-5, L5-S1 spinal stenosis 2. Lumbar scoliosis 3. Lumbar spondylosis with radiculopathy Hospital Course: 1. L4-5, L5-S1 Postero-lateral and posterior interbody fusion 2. L4-5, L5-S1 interbody cage placement. 3. L4-5, L5-S1 decompressive laminectomy with bilateral facetecomies 4. L4-5, L5-S1 Posterior segmental instrumentation 5. Sheridan of bone marrow from iliac crest 6. Utilization of microsurgical technique and operating microscope 7. Utiliztaion of robotic asssited navigation Same procedure as scheduled: Yes Indications: Patient has been having chronic back pain and worsening lumbar radiculopathy. Patient failed multiple conservative management with worsening pain weakness and numbness in his lower extremity.? Patient has been having difficulty performing activity of daily living.? After discussing risks benefits of treatment options, patient elected proceed with surgery. Surgeon: Reanna Kemp Skein Drier: Santiago Humphrey Click Yes if Unassisted: No Anesthesia Type: General Operative Notes Closure Type: primary Specimen(s): none sent Prosthetic devices, grafts, tissues, transplants, or devices: Globus CREO MIS screws, Rise cages Applied: catheter Estimated Blood Loss (mL): 100 Blood products transfused: none Patient admitted for the above-mentioned procedure. Patient consented to the same. Patient underwent lumbar fusion November 10, 2022. Patient back in his room recovering is doing well. Discontinue Mobley. Mobilize with physical therapy. Limit bending, twisting, lifting, multimodal pain management. Discharge home today after physical therapy is safe for home environment. Exam Vital Signs (past 8 hours): - 11/11/22 00:35 11/11/22 06:01 Temperature 97.3 F L 97.6 F Pulse Rate 64 63 Respiratory Rate 18 20 Blood Pressure 121/57 L 115/74 Pulse Oximetry 94 94 Oxygen Flow Rate 2.5 Oxygen Delivery Method Nasal Cannula Oxygen Flow Rate 2.5 Narrative Exam Narrative: 81-year-old male sitting up in bed. Motor functions intact bilateral lower extremities. Sensation grossly intact to light touch bilateral lower extremities. Const General: cooperative and comfortable Nutritional Appearance: average body habitus Orientation: alert Resp Effort & Inspection: normal respiratory effort and able to speak in complete sentences Objective Labs 11/11/22 06:20 Labs: Laboratory Results - last 24 hr 11/10/22 11/11/22 10:56 06:20 Hgb 13.4 L Hct 39.4 L SARS-CoV-2 (PCR) Negative [facility] Medical History Anesthesia complication Bruises easily Cataract (lens) fragments in eye following cataract surgery, bilateral Constipation Depression Diabetes Effusion, left knee Glaucoma Hearing impaired History of headache Hyperlipidemia Hypertension Murmur Osteoarthritis Paralysis of diaphragm Surgical History History of bunionectomy (~1993) History of cholecystectomy (~1976) History of inguinal hernia repair, bilateral History of lumbar laminectomy (~2012) 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 Discharge Plan Discharge Plan Patient Disposition: Home Discharge orders & Medications Prescriptions: New acetaminophen 325 mg Tablet 650 mg PO Q6H PRN (Reason: Fever/Mild Pain (1-3)) Qty: 60 0RF docusate sodium 100 mg Capsule 100 mg PO BID Qty: 10 0RF hydroxyzine pamoate 25 mg Capsule 25 mg PO Q4HR PRN (Reason: Nausea And Vomiting) Qty: 20 0RF oxycodone 10 mg Tablet 10 mg PO Q3H PRN (Reason: Pain, Severe (7-10)) Qty: 40 0RF Continued multivitamin Tablet 1 tab PO DAILY melatonin 3 mg Tablet 6 mg PO BEDTIME glipizide 2.5 mg Tablet Extended Release 24hr 2.5 mg PO DAILY simvastatin 20 mg Tablet 20 mg PO QPM gabapentin 300 mg Capsule 300 mg PO BEDTIME lisinopril 5 mg Tablet 5 mg PO DAILY latanoprost 0.005 % Drops 1 drp EYE-BOTH BEDTIME timolol maleate 0.5 % Drops 1 drp EYE-RIGHT QAM simvastatin 20 mg tablet 20 mg PO DAILY Discontinued acetaminophen 325 mg tablet 975 mg PO TID PRN (Reason: Pain) ibuprofen [Advil] 200 mg Tablet 400 mg PO BEDTIME Follow up/Referrals: Julio C Loomis MD [Primary Care Provider] - Reanna Kemp MD [Physician] - As previously scheduled (Two weeks as scheduled) Diet/Activity/Treatments Diet: Diet as Tolerated Activity: Limit bending, twisting, lifting Skin/Wound/Dressing Care Report to your healthcare provider any signs of infection, such as:: chills, fever, night sweats, increased pain, unusual drainage and unusual redness Dressing: Keep dressing clean and dry Visit Report/Discharge Packet Instructions: DI for Prescription Opioid Use, DI for Transforaminal Lumbar Interbody Fusion Stand Alone Forms: Patient Portal/API, Stroke Signs & Symptoms, Surgery Discharge Discharge Data Primary Care Provider: Julio C Loomis Quality VTE Deep Vein Thrombosis/Pulmonary Embolism Present on Admission: No
[2022-11-11] MEDS: TIMOLOL 0.5% OPHTH 1 DROPS EYE-RIGHT (09:06)
[2022-11-11] MEDS: lisinopriL 5 MG TABLET PO (09:07)
[2022-11-11] MEDS: DOCUSATE 100 MG CAPSULE PO (09:07)
[2022-11-11] MEDS: OXYCODONE IR 10 MG TABLET PO (09:07)
[2022-11-11] MEDS: MULTIVITAMIN 1 TABLET 1 TAB PO (09:07)
--- NOTE | 2022-11-11 10:55 | PT.IIE ---
Current Diagnoses Spondylolisthesis, lumbar region (11/10/22) Spinal stenosis, lumbar region with neurogenic claudication (11/10/22) Surgery Performed Operation Date: 11/10/22 12:15 Actual Procedures p L4-5, L5-S1 TLIF w. 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) History of total right knee replacement (08/2021) Medical History (Last Reviewed 11/11/22 @ 08:36 by Santiago Humphrey PA-C) Anesthesia complication Bruises easily Cataract (lens) fragments in eye following cataract surgery, bilateral Constipation Depression Diabetes Effusion, left knee Glaucoma Hearing impaired History of headache Hyperlipidemia Hypertension Murmur Osteoarthritis Paralysis of diaphragm Physical Therapy Inpatient Evaluation/Re-Eval M1 PT/OT-IP Prior Functional Status Start: 11/11/22 13:11 Freq: NEEDED Status: Discharge Protocol: Document 11/11/22 09:00 [facility] (Rec: 11/11/22 13:32 [facility] [id number]) Medical Review Prior Functional Status Communication independent Mobility and Gait Pt able to walk without a device but had pain. Activities of Daily Living and IADL's Pt had pain during ADL needs. Social History Household Members spouse Living Arrangements House Number of Floors (Floors) One Floor Number of Stairs To Enter/Railing? No steps to enter Home Environment High Toilet,Walk in Shower Home Equipment Front Wheel Walker,Straight Cane,Shower Seat without Backrest,Grab Bars Near Toilet ,Grab Bars In Shower Additional Social History Comment Pt has a supportive to be able to assist pt as needed. M1 PT/OT-IP Prior Functional Status Start: 11/11/22 13:49 Freq: NEEDED Status: Active Protocol: Document 11/11/22 10:55 AB (Rec: 11/11/22 14:04 AB [id number]) Medical Review Prior Functional Status Medical History Reviewed Yes Communication able to make needs known Mobility and Gait pt sated that he is independent with all mobilities and ambulation without AD Social History Household Members spouse Living Arrangements House Number of Floors (Floors) One Floor Number of Stairs To Enter/Railing? no steps to enter Home Environment High Toilet,Walk in Shower Home Equipment Shower Seat without Backrest, Grab Bars In Shower M2 PT-IP Current Condition Start: 11/11/22 13:49 Freq: NEEDED Status: Active Protocol: Document 11/11/22 10:55 AB (Rec: 11/11/22 14:04 AB [id number]) Physical Therapy Current Condition Current Condition Evaluation Date 11/11/22 Treatment Diagnosis s/p L4-5, L5S1 TLIF; difficulty in walking Onset Date 11/10/22 M3 PT-IP Subjective Start: 11/11/22 13:49 Freq: NEEDED Status: Active Protocol: Document 11/11/22 10:55 AB (Rec: 11/11/22 14:04 AB [email or web address]) Subjective Physical Therapy Visit Type Type Initial Evaluation Visit Start Time 10:55 Visit Stop Time 11:35 Total Visit Minutes 40 Number of MELT DOWN FURNACE OPERATOR Visits 0 Physical Therapy Visit Comments Patient Comments agreeable to do PT; wants to go home Therapy Pain Assessment Pain When Pain Assessed At Rest Pain Present Pain Present Pain Reported Location back Intensity 7 Scale Used Numeric (0 - 10) Pain Management Techniques Distraction,Modification of Treatment,Re-positioning, Timing of Activity with Medications M4 PT-IP Mobility and Gait Start: 11/11/22 13:49 Freq: NEEDED Status: Active Protocol: Document 11/11/22 10:55 AB (Rec: 11/11/22 14:04 AB [email or web address]) PT-Bed Mobility Assessment Rolling Type of Rolling Log Rolling Level of Assist Standby Assistance Supine to Sit Supine to Sit Standby Assistance,1 Person Assistance Sit to Supine Sit to Supine Minimal Assistance,1 Person Assistance,Head of Bed Elevated PT-Transfer Assessment Sit to and From Stand Sit to and from Stand Contact Guard Assistance, Minimal Assistance,1 Person Assistance,Use of Upper Extremities Equipment Transfer Assistive Device Gait Belt,Front Wheeled Walker Orthotic/Prosthetic Devices or Brace: No Comments Mobility Comments educated pt on back precautions. spouse in room with pt. pt stated that he wants to go home. pt completed log roll bed mobility supine to sit SBA. able to sit on EOB SBA. pt has a FWW but is too low for him. pt and spouse decided to obtain walker here in the hospital. pt completed sit to stand CGA to min A and ambulated ~ 10 ft to EOB using FWW min A with ( +) LOB x 1. pt can be impulsive. presents with R sided pelvic tilt and ankle eversion with increase hip external rotation. pt tends to scissor during ambulation. educated on safety and how to correct gait to increase stability. educated spouse on how to use safety belt and how to assist pt. spouse was able to put safety belt on pt and assisted pt with ambulation in room using FWW ~ 60 ft CGA to min A . pt went back to bed. pt did not recall how to log roll sit to spine. spouse instructed and assisted pt min A max cues. positioned pt in bed. call light and table placed within reach. requested FWW order and dispensed FWW to pt from [employer]. paper signed. Gait Assessment Gait Gait Assistance Required: Contact Guard Assist,Minimum Assistance,1 Person Assist Distance (Feet) 60 Able to Maintain Weight Bearing Status Yes During Gait Assistive Devices Assistive Device Gait Belt,Front Wheeled Walker Orthotic/Prosthetic Devices or Brace: No Gait Deviations General Gait Pattern Ataxic,Decreased Stride Length ,Decreased Feet Clearance, Flexed Trunk,Lateral Trunk Lean,Narrow Based Gait Factors Limiting Gait Function Factors Limiting Gait Function Decreased Activity Tolerance, Decreased Strength,Difficulty Following Directions,Limited Range of Motion,Pain,Poor Balance,Poor Safety Awareness PT-Balance Assessment Sitting Balance and Reactions Static Sitting Balance Ability Normal Dynamic Sitting Balance Ability Good Standing Balance and Reactions Static Standing Balance Ability Fair Dynamic Standing Balance Ability Fair Device Used FWW M5 PT-IP Objective Assessments Start: 11/11/22 13:49 Freq: NEEDED Status: Active Protocol: Document 11/11/22 10:55 AB (Rec: 11/11/22 14:04 AB [email or web address]) Orientation Orientation/Cognition Level of Alertness Alert Orientation Name Language Function Ability No Deficits Noted Safety Awareness Decreased Safety Awareness Memory Description Short Term Impaired Gross Range of Motion Lower Extremity ROM Assessment Within Functional Limits Strength Lower Extremity Strength Assessment Within Functional Limits Muscle Tone Muscle Tone WNL Yes M6 PT-IP Treatment Start: 11/11/22 13:49 Freq: NEEDED Status: Active Protocol: Document 11/11/22 10:55 AB (Rec: 11/11/22 14:04 AB [email or web address]) Physical Therapy Treatment Education Education Provided Precautions,Weight Bearing Status,Safety Equipment Issued Equipment Type and Company FWW dispensed: [employer] M7 PT-IP Assessment and Plan Start: 11/11/22 13:49 Freq: NEEDED Status: Active Protocol: Document 11/11/22 10:55 AB (Rec: 11/11/22 14:04 AB [id number]) PT Summary Assessment and Plan Potential Rehabilitation Potential Fair Status of Condition at Evaluation Stable Summary Impairments Pain,ROM,Strength,Balance, Coordination,Sensation,Tone, Cognition,Bed Mobility, Transfers,Gait,Activity Tolerance Assessment Summary pt s/p L4-5, L5 S1 TLIF POD1. pt requiring CGA to min A with mobility using FWW. caregiver training completed and spouse was able to assist pt safely. pt and spouse without further concerns. Dispensed FWW to pt for home use. Goals Bed Mobility Goal Independent Transfer Goal Independent Gait Goal Independent Gait Distance 300 Days to Meet Goals 5 Frequency of Treatment Frequency Of Treatment Twice a Day Treatment Plan Physical Therapy Treatment Plan Bed Mobility Training,Transfer Training,Gait Training, Therapeutic Exercise,Balance Retraining,Post Op Education, Discharge Planning,Hot or Cold Pack,Neuromuscular Re-ed, Coordination Retraining,Manual Therapy Precautions Lumbar Precautions Log Roll,No Twisting,Limit Bending,Lifting Restriction of 10 lbs,Gait Belt above Incisional Area Recommendations To Nursing Amount of Assist Needed 1 Person Assist Discharge Recommendations PT Discharge Recommendations Home with 19/01 Assist Available,Outpatient PT Transportation Needs at Discharge Private Vehicle
--- NOTE | 2022-11-11 10:59 | PC.NURSE ---
Assess- Patient is alert and oriented x4. His dressing to lower back is cdi. UP with pt and ot. Mobley taken out and patient voided 275cc of urine. in room. Blood sugar 135, meds and eye gtts given to patient.
--- NOTE | 2022-11-11 12:18 | CM.DANOTE ---
Patient is an 81 yo male who was admitted on 11/10/22 for TLIF. Pt has MCR and BC[employer] OUT [employer] for insurance and his PCP is Julio C Loomis. EMR was reviewed. Per Ortho, pt tolerated the procedure well and may be able to d/c home later today pending PT/OT eval. Per PT/OT, pt quite independent at baseline and has supportive spouse, Dtr, son and grandkids and completed CG training and recommending safe d/c home with family assist and FWW. FWW orders placed and pt and family wanting to d/c home by about lunchtime. Per RN, no concerns noted at this time and no barriers to d/c and d/c instructions provided. Plan: Patient to d/c home with supportive spouse and family and outpt f/u and no further SW needs at this time. DESTINEY Apodaca Discharge Planning/Care Management Advanced directive, confirm from FAMILY Start: 11/10/22 18:04 Freq: Q24H Status: Active Protocol: Document 11/10/22 18:04 CLL (Rec: 11/10/22 18:13 CLL [id number]) Co-signed By Olivia Decker RN Advance Directive, confirm on record Time 18:12 Person contacted patient Copy received No Advanced directive available on record No CM Discharge Assessment Start: 11/11/22 12:16 Freq: Status: Active Protocol: Document 11/11/22 12:16 BF (Rec: 11/11/22 12:18 BF [id number]) Discharge Planning Assessment Assigned Painter Plate DESTINEY Holland DPOA/Assigned Designee Name spouse Oliva and Dtr Sonali Contact Information [phone] Advance Directives? Yes Advance Directives on File No: On file at [facility] History Provided By Patient,Family Member,Medical Record Has Patient been admitted in last 30 No days? Prior Living Arrangements House Household Members spouse Type of transporation used prior to Relies on Others admit Independent with ADL's Yes Is patient alert and oriented? Yes Needs Assistance With Meal Prep,Home Chores / Shopping Caregiver for Another No Community Services used prior to Physical Therapy admission: DME Already Rented / Owned FWW / Walker,Cane Patient/Family Preference OP PT Therapy Barriers to Discharge No Discharge Plan Home Community Services Physical Therapy Transportation Arrangement Family Referrals Initiated None needed Additional Comment Met w/pt, dtr Sanam and bala dtr, explained role. Pt lost his one year ago and dtr explains pt is very indp mentally and functionally and yet very depressed since her passing. Sanam plans to spend the next few night with her Dad and her brother, pt's son, will be spending the night after that for a few nights. PT has assessed and cleared pt for return home w/his family. Pt and family agree no barriers to safe DC home w/ family later this afternoon. Whiteboard Updated in Patient Room with Yes name and ext. # of Painter Plate Review Status In Process Please Provide Date Initial DC 11/11/22 Assessment Was Performed Next Review Type Continued Stay Review Pre-Anesthesia Assessment Start: 11/03/22 09:49 Freq: Status: Active Protocol: Document 11/03/22 09:50 CAB (Rec: 11/03/22 10:32 CAB [id number]) Pre-Anesthesia Assessment Preferred Name Don Patient Information Reviewed Via Phone Assessment Assessment Completed With Patient Diagnostic Results BMP/CMP,CBC,EKG Comment Outside Labs/EKG scanned Primary Care Provider Julio C Loomis Seen Specialist in Last 12 Months Yes Specialist Seen Orthopedist Primary Language Malaysian Preferred Language Malaysian Team Sports Sales Associate Required No Height 187.96 cm Weight 92.986 kg Body Mass Index (BMI) 26.3 Hearing Ability Hearing Impaired Visual Assist Glasses Dentition Type Teeth, Natural Present,Teeth, Missing Barriers to Learning Auditory,Visual Hx Anesthesia Reactions Yes: Gallbladder like pain when waking up from right knee surgery 2020, nausea Hx Family Anesthesia Reaction No Hx Malignant Hyperthermia No Hx Blood Transfusions No Hx Blood Transfusion Reaction No Anesthesia Review Requested No Product Control And Logistics Analyst No alcohol intake current alcohol intake frequency 0-2 drinks per day Smoking Status Former smoker Tobacco type cigarettes how long ago did patient quit smoking 1969 Substance Use Type does not use Pain Present Pain Reported Musculoskeletal Symptoms Abnormal Gait,Back Pain, Difficulty Walking,Joint Pain History of Falling (Recent or History of No ) Patient is completely paralyzed or No completely immobile Mental Status Oriented to own ability Is patient on oxygen? No Does patient have BOWEN/SOB Yes: Increased effort of resp R/T diaphragm paralysis, not SOB w/ADLs Hx Sleep Apnea No CPAP/BIPAP use not prescribed Currently Taking a Beta Rboert No Can You Climb a Flight of Stairs Without Yes SOB Hx Chest Pain No Hx SOB Yes: Increased effort of resp R/T diaphragm paralysis, not SOB w/ADLs Hx Syncope or Dizziness No Anti-Coagulant Therapy No Has a Warehouse Order Puller No Cardiac Testing No Hx Pacemaker/ICD No Pacemaker Rep Required? No Diet Type At Home Regular Dysphagia No Gastrointestinal Symptoms Constipation Chronic UTI No Bladder Pattern Nocturia Urinary Catheter Present No Hx Urinary Self Catheterization No Diabetes Yes HgbA1C 6.0 Date 09/11/22 Hx Drug Resistant Organism No Presence of External or Internal Medical Yes: Anjum knee prosthesis Devices Received a COVID vaccine? Yes Received all doses? Yes Marital Status Lives With spouse Current Living Arrangements House Number of Floors (Floors) One Floor Number of Stairs To Enter/Railing? None Support System Child/Children,Spouse Does the Patient Have Assistance After Yes Surgery Patient Discharge Plan Description Return Home Comment Pt advised 1-3 day length of stay per surgeon Feels Safe in Current Environment Yes Been Physically Hurt or Threatened By a No Person in Current Environment Do you have thoughts of harming yourself None or others? Are you currently considering suicide? No Do you have a plan to hurt yourself or No Plan others? Do You Have Any Spiritual Beliefs That No May Affect Your HC Choices? Do You Have Any Cultural Practices That No May Affect Your HC Choices? Comment Jainism Who Can We Speak to About Patient's Care Family, friends Identifying Code for Release of Patient Declines to issue Information Health Care Proxy/Next of Kin Oliva () Health Care Proxy Emergency Contact Name Sanam Prince (daughter), Sonali Stein (daughter) Emergency Contact Phone Number Sanam - [phone] Sonali Stein [phone] Advance Directives? Yes Advance Directives on File No: On file at [facility] Requested Patient Bring Advanced Yes Directives DOS Power of Cuff Setter Yes Power of Cuff Setter Name Oliva () Power of Cuff Setter PAC Instructions Diabetes instructions,Durable medical equipment,Medications to take/avoid,Nasal antibiotic ,No ETOH/petroleum product on skin DOS,NPO,Pre-surgical wash ,Sensory aids,Sturdy shoes/ comfortable clothes,Do not bring valuables and remove jewelry
--- NOTE | 2022-11-11 13:32 | OT.IP.EVAL ---
Current Diagnoses Spondylolisthesis, lumbar region (11/10/22) Spinal stenosis, lumbar region with neurogenic claudication (11/10/22) Surgery Performed Operation Date: 11/10/22 12:15 Actual Procedures p L4-5, L5-S1 TLIF w. posterior instrumentation -Robot - Reanna Kemp MD Past Medical History (Last Reviewed 11/11/22 @ 08:36 by Santiago Humphrey PA-C) Anesthesia complication Bruises easily Cataract (lens) fragments in eye following cataract surgery, bilateral Constipation Depression Diabetes Effusion, left knee Glaucoma Hearing impaired History of headache Hyperlipidemia Hypertension Murmur Osteoarthritis Paralysis of diaphragm Surgical History (Last Reviewed 11/11/22 @ 08:36 by Santiago Humphrey PA-C) History of bunionectomy (~1993) History of cholecystectomy (~1976) History of inguinal hernia repair, bilateral History of lumbar laminectomy (~2012) 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 Activities of Daily Living and IADL's Pt had pain during ADL needs. Social History Household Members spouse Living Arrangements House Number of Floors (Floors) One Floor Number of Stairs To Enter/Railing? No steps to enter Home Environment High Toilet,Walk in Shower Home Equipment Front Wheel Walker,Straight Cane,Shower Seat without Backrest,Grab Bars Near Toilet ,Grab Bars In Shower Additional Social History Comment Pt has a supportive to be able to assist pt as needed. M2 OT-IP Current Condition Start: 11/11/22 13:11 Freq: Status: Discharge Protocol: Document 11/11/22 09:00 [facility] (Rec: 11/11/22 13:32 [facility] [id number]) Occupational Therapy Current Condition Current Condition Evaluation Date 11/11/22 Treatment Diagnosis S/p L4-5, L5-S1 TLIF Diagnosis Onset Date 11/10/22 Post Operative Precautions Lumbar Precautions Log Roll,No Twisting,Limit Bending,Lifting Restriction of 10 lbs,Gait Belt above Incisional Area M3 OT- IP Subjective and Pain Start: 11/11/22 13:11 Freq: Status: Discharge Protocol: Document 11/11/22 09:00 [facility] (Rec: 11/11/22 13:32 [facility] [id number]) OT- Subjective Occupational Therapy Visit Type Type Initial Evaluation Visit Start Time 09:00 Visit Stop Time 09:45 Total Visit Minutes 45 Occupational Therapy Visit Comments Patient Comments Pt agreed to get up and his in the room. Patient/Caregiver Goals To go home. OT Pain Assessment Pain When Pain Assessed At Rest Pain Present Pain Present Pain Reported Location back Intensity 6 Scale Used Numeric (0 - 10) M4 OT- IP ADL's Start: 11/11/22 13:11 Freq: Status: Discharge Protocol: Document 11/11/22 09:00 [facility] (Rec: 11/11/22 13:32 [facility] [id number]) OT WNJ-Rigl-Vthfdio General Evaluation Self-Feeding Ability Independent OT ADL-Grooming Comments OT Grooming Comments Not performed OT ADL-Oral Care Comments Oral Care Comments Educated best to spit into a cup or hinge at his hips to best follow his back precautions. OT ADL-Dressing General Eval Lower Body Dressing Ability Maximum Assistance Comments OT Dressing Comments Able to educate pt of LB dressing equipment needs, pt states will just have his to assist with his needs. OT ADL-Toileting Comments OT Toileting Comments Pt not having to go as Mobley still in place. Suggested use of wet wipes or to stand to wipe to best follow his back precautions. OT ADL-Bathing Comments OT Bathing Comments Pt not wanting to do at this time. Suggested best to have a HHSP to increase ease to wash his back with assist. M5 OT- IP IADL's Start: 11/11/22 13:11 Freq: Status: Discharge Protocol: Document 11/11/22 09:00 [facility] (Rec: 11/11/22 13:32 [facility] [id number]) OT-Instrumental Activities of Daily Living Deficits IADL Deficits Identified Deficits Home Safety Awareness Awareness of Need for Assistance at Home Good Awareness Home Safety Comments Pt needing cues to incorporate his back precautions for ADl and mobility needs. Pt's is able to assist pt at home for his needs. Meal Preparation Meal Preparation Caregiver Provides Assist Backside Grinder Backside Grinder Caregiver Provides Assist M6 OT- IP Functional Cognition Start: 11/11/22 13:11 Freq: Status: Discharge Protocol: Document 11/11/22 09:00 [facility] (Rec: 11/11/22 13:32 [facility] [id number]) Cognitive Factors Limiting Selfcare Function Cognitive Ability Level of Alertness Alert Patient Orientation Name,Place,Situation Attention Span Ability Capable of Focused Attention, Capable of Sustained Attention Ability to Follow Commands Able to Follow One Step Commands with Increased Time, Able to Follow One Step Commands with Repetition Safety Awareness Decreased Recall of Precautions,Decreased Ability to Apply Precautions Cognitive Comments Cognitive Assessment Comments Pt needing cues to recall and incorporate his back precautions for ADl and mobility needs. OT- Vision and Hearing OT- Hearing Assessment OT- Hearing Assessment WFL OT- Vision Assessment Visual Acuity Glasses For Reading M7 OT- IP Mobility and Balance Start: 11/11/22 13:11 Freq: Status: Discharge Protocol: Document 11/11/22 09:00 [facility] (Rec: 11/11/22 13:32 [facility] [id number]) OT- Bed Mobility Assessment Supine to Sit Supine to Sit Assist Standby Assistance Sit to Supine Sit to Supine Assist Minimal Assistance Scooting Scooting to Edge of Bed Contact Guard Assistance OT-Transfer Assessment Sit to and From Stand Sit to and from Stand Contact Guard Assistance Transfers Transfer Ability Minimal Assistance Technique Transfer Destination Bed,Chair Devices Transfer Assistive Devices Gait Belt,Front Wheeled Walker Comments Mobility Comments SBA to get out of bed, JULIAN to to help get his legs into bed . OT- Balance Assessment Comments Other Balance Tests/Deviations/Treatment CGA to with FWW and needing : JULIAN for balance as pt tends to walk with his heels close together and unsteady on his feet. Pt's FWW too short and educated pt's to get another FWW . M9 OT- IP Assessment and Plan Start: 11/11/22 13:11 Freq: Status: Discharge Protocol: Document 11/11/22 09:00 [facility] (Rec: 11/11/22 13:32 [facility] [id number]) OT Summary Assessment and Plan Potential Rehabilitation Potential Good Analytic Complexity at Evaluation Low Summary OT Impairments Pain,Strength,Balance, Functional Mobility,Dressing, Toileting,Bathing,Toilet Transfers,Shower Transfers, Activity Tolerance Progress Towards Goals Progressing Toward Goals Assessment Summary Pt low complexity and main barriers are pain, decreased balance and needing cues to follow his back precautions. Initiated education with pt's to aileen/doff the gait belt , and need for ADL's. Pt to go home with assist when medically stable. Goals Grooming Goal Independent Dressing Goal Minimal Assistance Toileting Goal Independent Bathing Goal Standby Assistance Toilet Transfer Goal Independent Shower Transfer Goal Independent Days to Meet Goals 5 Frequency of Treatment Frequency Of Treatment Once a Day Treatment Plan OT Treatment Plan ADL Training,Functional Cognition Training,Functional Mobility,Patient/Family Education,Discharge Planning Other Treatment Recommendations and Next shower if still here Treatment Focus Discharge Recommendations OT Discharge Recommendations Home with Assistance Home Equipment Needs FWW Transportation Needs at Discharge Private Vehicle
== END 2022-11-11 13:23 | disposition home or self-care (01) | DRG 455 ==
PROVIDERS: Admitting Provider Orthopaedic Surgery Orthopaedic Surgery of the Spine; PCP Student in an Organized Health Care Education/Training Program; Referring Provider Orthopaedic Surgery Orthopaedic Surgery of the Spine; Visit Provider Orthopaedic Surgery Orthopaedic Surgery of the Spine
PROC: 0SG00AJ Fusion of Lumbar Vertebral Joint with Interbody Fusion Device, Posterior Approach, Anterior Column, Open Approach (ICD-10-PCS; principal; 2022-11-10 12:15)
DX: M48.062 Spinal stenosis, lumbar region with neurogenic claudication (principal); M47.26 Other spondylosis with radiculopathy, lumbar region; M43.16 Spondylolisthesis, lumbar region; M41.86 Other forms of scoliosis, lumbar region; M48.07 Spinal stenosis, lumbosacral region; E11.9 Type 2 diabetes mellitus without complications; E78.5 Hyperlipidemia, unspecified; I10 Essential (primary) hypertension; H40.9 Unspecified glaucoma; Z87.891 Personal history of nicotine dependence; Z79.84 Long term (current) use of oral hypoglycemic drugs; Z20.822 Contact with and (suspected) exposure to COVID-19
CPT/HCPCS: 36415; 72100; 76000; 82962; 85014; 85018; 87086; 87635; 97161; 97165; 97530; C9803; C1831; J0690; J1100; J1170; J2405; J2704